=== PATIENT | male | born 1970 | race Caucasian/White ===

== ENCOUNTER 2021-04-25 05:27 | Day surgery (SDC) | payer OTHER ==
[2021-04-22 10:23] LABS: COVID AG,FIA SOURCE NASOPHARYNGEAL
[~2021-04-25] VITALS: Ht 170.2 cm; Wt 104.5 kg
[2021-04-25] MEDS ORDERED: PROPOFOL 1% 20 ML VIAL IVP ONE (05:28)
[2021-04-25] MEDS ORDERED: LIDOCAINE/PF 2% 5 ML VIAL IM ONE (05:28)
[2021-04-25] MEDS ORDERED: RINGERS SOLUTION,LACTATED 1,000 ML IV ONE ×2 (05:30→05:32)
[2021-04-25] MEDS ORDERED: BUPIVACAINE HCL/PF 0.25% 30 ML VIAL ONE (06:43)
[2021-04-25] MEDS ORDERED: SODIUM CL IRRIG SOLN BAG 0 ML IRRIG ONE (06:43)
[2021-04-25] MEDS ORDERED: BACITRACIN 50,000 UNITS/VIAL ONE (06:43)
[2021-04-25] MEDS ORDERED: LIDOCAINE/PF 1% 30 ML VIAL ONE (06:43)
[2021-04-25] MEDS ORDERED: SODIUM CHLORIDE 0.9% 0 ML ONE (06:43)
[2021-04-25] MEDS ORDERED: FentaNYL CITRATE PF 100 MCG/2 ML VIAL IVP ONE (12:00)
[2021-04-25] MEDS ORDERED: MIDAZOLAM HCL 2 MG/2 ML VIAL IVP ONE (12:00)
== END 2021-04-25 10:20 | disposition home or self-care (01) ==
LOC: SURGERY 05:27
PROVIDERS: ATTEND Podiatrist Primary Podiatric Medicine
DX: M72.2 Plantar fascial fibromatosis (principal); M20.41 Other hammer toe(s) (acquired), right foot; E66.3 Overweight; F17.210 Nicotine dependence, cigarettes, uncomplicated; Z98.890 Other specified postprocedural states; Z72.89 Other problems related to lifestyle; E78.00 Pure hypercholesterolemia, unspecified
CPT/HCPCS: 28060; 87426; 93005; C9803; J2250; J2704; J3010; J3490 ×3; J7120